=== PATIENT | male | born 1980 | race Caucasian/White ===

== ENCOUNTER 2016-08-02 10:13 | Day surgery (SDC) | payer OTHER, SELFPAY ==
[~2016-08-02] VITALS: Ht 190.5 cm; Wt 110.5 kg
[~2016-08-02 10:13] MED LIST: BUPIVACAINE/PF-EPI 0.5% 1:200K ONE
[2016-08-02] MEDS ORDERED: NONE PER PT (10:49)
[2016-08-02] MEDS ORDERED: LACTATED RINGERS 1,000 ML IV SCH (10:50)
[2016-08-02 11:08] VITALS: BP 148/92
[2016-08-02] MEDS ORDERED: FENTANYL PF 250 MCG/5ML ONE (13:26)
[2016-08-02] MEDS ORDERED: MIDAZOLAM 1 MG/ML, 2ML ONE (13:26)
[2016-08-02] MEDS ORDERED: PROPOFOL 10 MG/ML, 20ML ONE (13:35)
[2016-08-02] MEDS ORDERED: KETOROLAC 30 MG/1 ML ONE (13:35)
[2016-08-02] MEDS ORDERED: CEFAZOLIN 1,000 MG ONE (13:35)
[2016-08-02] MEDS ORDERED: ONDANSETRON 2MG/ML, 2ML ONE (13:35)
[2016-08-02] MEDS ORDERED: DEXAMETHASONE 4 MG/ML, 1ML ONE (13:35)
[2016-08-02] MEDS ORDERED: SUCCINYLCHOLINE 20 MG/ML, 10ML ONE (13:35)
[2016-08-02] MEDS ORDERED: LABETALOL 5MG/ML, 20ML IV PRN (14:00)
[2016-08-02] MEDS ORDERED: MIDAZOLAM 1 MG/ML, 2ML IV PRN (14:00)
[2016-08-02] MEDS ORDERED: hydrALAzine 20 MG/ML, 1ML IV PRN (14:00)
[2016-08-02] MEDS ORDERED: MEPERIDINE/PF 25MG/0.5ML IVPush PRN (14:00)
[2016-08-02] MEDS ORDERED: OXYcodone 5 MG/5 ML ORAL.SOL UDC PO PRN (14:00)
[2016-08-02] MEDS ORDERED: FENTANYL PF 100 MCG/2ML IV PRN (14:00)
[2016-08-02] MEDS ORDERED: HYDROmorphone 1 MG/ML, 1ML IV PRN (14:00)
[2016-08-02] MEDS ORDERED: PROMETHAZINE 25 MG/ML, 1ML IV PRN (14:00)
[2016-08-02] MEDS ORDERED: ALBUTEROL SULFATE 2.5 MG/3 ML NPPB PRN (14:00)
[2016-08-02] MEDS ORDERED: ONDANSETRON 2MG/ML, 2ML IVPush PRN (14:00)
[2016-08-02] MEDS ORDERED: ACETAMINOPHEN 325 MG TABLET PO PRN (14:00)
[2016-08-02] MEDS ORDERED: OXYcodone 5 MG/5 ML ORAL.SOL UDC ONE (15:14)
== END 2016-08-02 16:20 | disposition home or self-care (01) ==
LOC: OUT 10:13
PROVIDERS: ATTEND Surgery
DX: M79.89 Other specified soft tissue disorders (principal)
CPT/HCPCS: 21555; 21931; 88305; J0330; J0690; J1100; J1885; J2250; J2405; J2704; J3010; J7120